=== PATIENT | female | born 1970 | race Caucasian/White ===

== ENCOUNTER 2016-07-11 18:15 | Inpatient (IN) | payer OTHER ==
[~2016-07-11] VITALS: Ht 167.6 cm; Wt 63.0 kg
--- NOTE | 2016-07-11 21:45 | NUR ---
MS/RN OPENING NOTES RECEIVED REPORT FROM HILARIA JEONG AT AROUND 1999. PT ARRIVED VIA PARAMEDICS FROM [place]. A/OX2-3, ON ROOM AIR, NO SOB OR DISTRESS NOTED. DENIES PAIN AT THIS TIME. IV TO RIGHT AC PATENT AND INTACT. العراقي IN PLACE DRAINING CLEAR YELLOW URINE. ORIENTED PT TO ROOM AND CALL LIGHT BED RAILS UPX3 AND ALARM ON. CALL LIGHT IN REACH. BED IN LOW/LOCKED POSITION. WILL CONTINUE TO MONITOR
[2016-07-11 22:00] VITALS: BP 95/47
[2016-07-11 22:05] VITALS: BP 95/47
--- NOTE | 2016-07-11 23:00 | NUR ---
MS/RN NOTES PT REQUESTING TO HAVE SOMETHING TO EAT AND DRINK. DR. JIMENES ON THE FLOOR. SAID OKAY TO EAT NOW BUT NPO AFTER MIDNIGHT. SANDWICH AND WATER/JUICE PROVIDED AND INFORMED PT OF NPO STATUS POST MIDNIGHT. PT VERBALIZED UNDERSTANDING
[2016-07-11] MEDS ORDERED: PANT40TA4 PO (23:29)
[2016-07-11] MEDS ORDERED: AZIT500T PO (23:29)
[2016-07-11] MEDS ORDERED: LACT10SO PO (23:29)
[2016-07-11] MEDS ORDERED: SULF1TAB47 PO (23:29)
[2016-07-11] MEDS ORDERED: ZOLPIDEM TARTRATE 5 MG TABLET PO PRN (23:30)
[2016-07-11] MEDS ORDERED: ONDANSETRON HCL/PF 4 MG/2 ML VIAL IVP PRN (23:30)
[2016-07-11] MEDS ORDERED: ACETAMINOPHEN 325 MG TABLET PO PRN (23:30)
[2016-07-11] MEDS ORDERED: Z GUARD REMEDY 2 OZ OINT TP PRN (23:30)
[2016-07-11] MEDS ORDERED: MORPHINE SULFATE INJ 2 MG/ML DISP.SYRIN IV PRN (23:30)
[2016-07-11] MEDS ORDERED: MAGNESIUM HYDROXIDE 30 ML UDC PO PRN (23:30)
[2016-07-11] MEDS: LACTULOSE 10 G/15 ML UDC (PYXIS) PO SCH (23:30)
[2016-07-11] MEDS ORDERED: LACTULOSE 10 G/15 ML UDC (PYXIS) ONE (23:57)
[2016-07-12] MEDS ORDERED: DEXTROSE 50%-WATER 50 ML DISP.SYRIN IV PRN
--- NOTE | 2016-07-12 | NUR ---
MS/RN NOTES ADMINISTERED SCHEDULED LACTULOSE 20G PO. FORGOT TO SAVE AFTER SCANNING.
--- NOTE | 2016-07-12 02:20 | NUR ---
MS/RN NOTES PT CURRENTLY ASLEEP. BREATHING EVEN AND UNLABORED. NO S/S OF DISTRESS NOTED. WARM BLANKETS PROVIDED. WILL CONTINUE TO MONITOR
[2016-07-12 06:32] LABS: BASOPHILS % (AUTO) 0.2 % (0.0-2.0); EOSINOPHILS # (AUTO) 0.1 /CMM (0.0-0.7); HEMATOCRIT 29 % (33-45); HEMOGLOBIN 9.4 g/dL (11.5-14.8); LYMPHOCYTES # (AUTO) 0.5 /CMM (0.8-4.8); LYMPHOCYTES % (AUTO) 9.7 % (20.0-44.0); MEAN CORPUSCULAR HEMOGLOBIN 29 PG (26.0-33.0); MEAN CORPUSCULAR HGB CONC 32 g/dl (31.0-36.0); MEAN CORPUSCULAR VOLUME 90 fL (82-100); MONOCYTES # (AUTO) 0.6 /CMM (0.1-1.30); MONOCYTES % (AUTO) 12.7 % (2.0-12.0); NEUTROPHILS # (AUTO) 3.9 /CMM (1.8-8.9); NEUTROPHILS % (AUTO) 75.4 % (43.0-81.0); PLATELET COUNT (AUTO) 127 /CMM (150-450); RDW COEFFICIENT OF VARIATION 19.4 (11.5-15.0); WHITE BLOOD COUNT (AUTO) 5.1 K/uL (4.3-11.0)
[2016-07-12] MEDS: BLOOD SUGAR DIAGNOSTIC 1 EACH STRIP IN SCH ×4 (06:35→21:40)
--- NOTE | 2016-07-12 06:36 | NUR ---
MS/RN NOTES BLOOD SUGAR=98 NO INSULIN COVERAGE PER SLIDING SCALE
--- NOTE | 2016-07-12 06:51 | NUR ---
MS/RN CLOSING NOTES PT ASLEEP, EASILY AROUSABLE TO NAME. A/OX2-3, ON ROOM AIR, NO SOB OR DISTRESS NOTED. BREATHING EVEN AND UNLABORED. NO COMPLAINTS OF PAIN AT THIS TIME. PT NPO STATUS FOR ABDOMINAL US TODAY. IV TO RAC PATENT AND INTACT. العراقي IN PLACE AND DRAINING WELL. PT AMBULATED WITH WALKER MULTIPLE TIMES THROUGHOUT THE NIGHT. HAD 2 EPISODES OF LOOSE YELLOW/BROWN STOOL POST LACTULOSE ADMINISTRATION. PT WANTS FLU VACCINE UPON DISCHARGE. MADE PT COMFORTABLE THROUGHOUT SHIFT. ALL NEEDS MET AND ATTENDED TO. BED IN LOW/LOCKED POSITION, BED ALARM ON. BED RAILS UPX3. Addendum: 07/12/16 at 0702 by ARIANNA MARIE RN PT REFUSED DVT PUMPS THROUGHOUT SHIFT. WILL ENDORSE RADHA TO AM SHIFT
[2016-07-12 07:11] LABS: ALBUMIN 2.3 g/dL (3.4-5.0); BILIRUBIN,TOTAL 0.6 mg/dL (0.2-1.0); CALCIUM, SERUM 8.1 mg/dL (8.5-10.1); PHOSPHORUS 2.6 mg/dL (2.5-4.9); POTASSIUM 3.1 mmol/L (3.5-5.1); TOTAL PROTEIN, SERUM 5.6 g/dL (6.4-8.2)
[2016-07-12 08:00] VITALS: BP 92/46
[2016-07-12 08:06] VITALS: BP 92/46
[2016-07-12] MEDS: SULFAMETH/TRIMETH 800/160 MG 1 UDTAB TABLET PO SCH ×2 (08:38→21:14)
[2016-07-12] MEDS: LACTULOSE 10 G/15 ML UDC (PYXIS) PO SCH ×3 (08:38→16:28)
[2016-07-12] MEDS: PANTOPRAZOLE 40 MG VIAL IV SCH (08:38)
[2016-07-12] MEDS ORDERED: ACET650S26 PO (08:53)
[2016-07-12] MEDS ORDERED: ALBU2.5V13 IH (08:53)
[2016-07-12] MEDS ORDERED: GUAI100S11 PO (08:53)
[2016-07-12] MEDS ORDERED: NAPH1POW3 PO (08:53)
[2016-07-12] MEDS ORDERED: RIFA150C3 PO (08:53)
[2016-07-12] MEDS ORDERED: HYDR-3326 PO (08:53)
[2016-07-12] MEDS ORDERED: PIPE2.259 IV (08:53)
[2016-07-12] MEDS ORDERED: ONDA4VIA30 IV (08:53)
[2016-07-12] MEDS ORDERED: PANT40VI IV (08:53)
[2016-07-12] MEDS ORDERED: IPRA3AMP IH (08:53)
--- NOTE | 2016-07-12 10:31 | NUR ---
MS RN NOTES S/B DR. SCHILLING WITH NEW ORDERS TO CANCEL ABDOMINAL ULTRASOUND, AND START HEPATIC DIET, AMMONIA LEVEL ALREADY DONE IN AM.
--- NOTE | 2016-07-12 10:38 | NUR ---
MS RN NOTES SPOKE WITH DIONNA TRAVIS AND SHE SAID TO ORDER 2 GMS NA AND 60 GMS PROTEIN FOR THE HEPATIC DIET.
[2016-07-12] MEDS ORDERED: POTASSIUM CHLORIDE 10 MEQ TABLET.SA PO ONE (11:30)
[2016-07-12] MEDS: INSULIN REGULAR, HUMAN 100 UNIT/ML 3 ML VIAL SQ PRN ×2 (11:43→17:19)
--- NOTE | 2016-07-12 13:03 | NUR ---
MS RN NOTES PATIENT REFUSED TO TAKE HER LACTULOSE, RISK AND BENEFITS DISCUSSED TO THE PATIENT THAT IT IS FOR THE TREATMENT OF HER HEPATIC ENCEPHALOPATHY BUT SHE STATED "I DON'T WANT TO TAKE IT! ". PATIENT IS AOX3, ABLE TO MAKE NEEDS KNOWN.
[2016-07-12 15:57] VITALS: BP 97/65
[2016-07-12 16:00] VITALS: BP 97/65
--- NOTE | 2016-07-12 17:19 | NUR ---
MS RN NOTES BLOOD SUGAR 110 NO INSULIN COVERAGE.
--- NOTE | 2016-07-12 19:00 | NUR ---
MS RN NOTES ENDORSED TO INCOMING SHIFT FOR CONTINUITY OF CARE. PATIENT REMAIN STABLE THE WHOLE SHIFT, NEEDS ALL ATTENDED.
--- NOTE | 2016-07-12 19:30 | NUR ---
RN NOTES: PT AWAKE, A/OX2-3, ON ROOM AIR, NO SOB OR DISTRESS NOTED. BREATHING EVEN AND UNLABORED. NO COMPLAINTS OF PAIN AT THIS TIME. IV TO RAC PATENT AND INTACT. العراقي IN PLACE AND DRAINING WELL. PT AMBULATING USING HER WALKER AROUND THE FLORES. SUGGEST TO HER TO REST IN HER ROOM, GIVEN WARM BLANKET. BED IN LOW AND LOCKED POSITION, BED ALARM ON. BED RAILS UPX2. CALL LIGHT WITH IN REACH.
[2016-07-12 20:00] VITALS: BP 108/72
--- NOTE | 2016-07-12 21:40 | NUR ---
RN NOTES: BLOOD SUGAR CHECK-120, INSULIN NOT GIVEN PER SCALE WILL CONTINUE TO MONITOR FOR SIGN OF HYPER/HYPOGLYCEMIA.CALL LIGHT WITHIN REACH.
[2016-07-12] MEDS: *INSULIN REGULAR(HUMULIN R)HUM 100 UNIT/ML VIAL SQ PRN (21:43)
--- NOTE | 2016-07-12 21:50 | NUR ---
RN NOTES: 2144 COMPLAINED OF GENERALIZED PAIN 12/21, BEFOREHAND SHE WAS WALKING AROUND USING HER WALKER,BP-103/66 IL-86 INSTRUCT TO STAY IN BED AFTER SHE RECEIVED HER PAIN MEDICATION BECAUSE IT WILL CAUSE DROWSINESS AND SHE WILL BE HIGH RISK FOR FALL IF SHE KEEP AMBULATING, SHE AGREED,PAIN MEDICATION GIVEN, CALL LIGHT WITH IN REACH, SIDERAILSX4 UP,BED LOW AND LOCKED.
--- NOTE | 2016-07-12 22:54 | NUR ---
RN NOTES: PATIENT GET UP AND CRYING SHE IS STILL IN PAIN SHE SAID SHE IS NOT RELIEVED AT ALL, PAIN IS 10/10 NOW,DR. JIMENES(SPOT REMOVER) NOTIFIED AT 2248PM AND INFORMED PATIENT IS HAVING SEVERE PAIN AND ON EEXTRA PRECAUTION IN TAKING NEPHROTOXIC MEDICATION, DR. Jimenes ORDERED TO GIVE EXTRA 1MG NOW AND DISCONTINUE PREVIOUS MORPHINE ORDER AND INCREASE TO 3MG, NOTED AND CARRIED OUT.
[2016-07-12] MEDS ORDERED: MORPHINE SULFATE INJ 2 MG/ML DISP.SYRIN ONE (22:56)
[2016-07-12] MEDS ORDERED: MORPHINE SULFATE INJ 2 MG/ML DISP.SYRIN IV ONE (23:00)
--- NOTE | 2016-07-12 23:02 | NUR ---
RN NOTES: BP CHECK-109/69 HI-94 PATIENT I CRYING AND VERY RESTLESS, SHE IS TELLING SHE IS IN PAIN, MORPHINE 1MG STAT GIVEN.PUT BACK IN BED. CALL LIGHT WITH IN REACH.
--- NOTE | 2016-07-12 23:40 | NUR ---
RN NOTES: PAIN WAS LESSENED 5/10,PATIENT WAS ABLE TO REST AND SLEEP,KEPT ON CLOSE VISUAL CHECK, CALL LIGHT WITH IN REACH.
--- NOTE | 2016-07-13 02:16 | NUR ---
RN NOTES: PATIENT IN DEEP SLEEP, NO CALLS MADE, KEPT ON CLOSE VISUAL CHECK, NO SIGN OF RESPIRATORY DISTRESS NOTED.
[2016-07-13] MEDS: BLOOD SUGAR DIAGNOSTIC 1 EACH STRIP IN SCH ×4 (06:53→22:21)
[2016-07-13] MEDS: INSULIN REGULAR, HUMAN 100 UNIT/ML 3 ML VIAL SQ PRN ×2 (06:54→12:04)
--- NOTE | 2016-07-13 06:54 | NUR ---
RN NOTES: SLEEP WELL AFTER HER PAIN MEDICATION DOSE,BLOOD SUGAR CHECK-97, NO INSULIN GIVEN PER SCALE, WILL ENDORSE TO MORNING SHIFT FOR CONTINUITY OF CARE.
[2016-07-13 07:14] LABS: ALBUMIN 2.1 g/dL (3.4-5.0); BASOPHILS % (AUTO) 0.6 % (0.0-2.0); BILIRUBIN,TOTAL 0.5 mg/dL (0.2-1.0); CALCIUM, SERUM 8.2 mg/dL (8.5-10.1); CREATININE 1.9 mg/dL (0.6-1.3); EOSINOPHILS # (AUTO) 0.1 /CMM (0.0-0.7); EOSINOPHILS % (AUTO) 1.2 % (0.0-6.0); HEMATOCRIT 26 % (33-45); HEMOGLOBIN 8.5 g/dL (11.5-14.8); LYMPHOCYTES # (AUTO) 0.5 /CMM (0.8-4.8); LYMPHOCYTES % (AUTO) 11.5 % (20.0-44.0); MAGNESIUM 1.7 mg/dL (1.8-2.4); MEAN CORPUSCULAR HEMOGLOBIN 29 PG (26.0-33.0); MEAN CORPUSCULAR HGB CONC 33 g/dl (31.0-36.0); MEAN CORPUSCULAR VOLUME 89 fL (82-100); MONOCYTES # (AUTO) 0.5 /CMM (0.1-1.30); MONOCYTES % (AUTO) 12.1 % (2.0-12.0); NEUTROPHILS # (AUTO) 3.3 /CMM (1.8-8.9); NEUTROPHILS % (AUTO) 74.6 % (43.0-81.0); PHOSPHORUS 2.5 mg/dL (2.5-4.9); PLATELET COUNT (AUTO) 131 /CMM (150-450); POTASSIUM 3.6 mmol/L (3.5-5.1); RED BLOOD CELL COUNT(AUTO) 2.92 MIL/uL (4.0-5.2); TOTAL PROTEIN, SERUM 5.3 g/dL (6.4-8.2); WHITE BLOOD COUNT (AUTO) 4.4 K/uL (4.3-11.0)
--- NOTE | 2016-07-13 07:20 | NUR ---
RN OPEN NOTES RECEIVED REPORT FROM CINDER PITMAN NURSE. PATIENT IS IN HER BED WITH HER EYE CLOSED, AWAKEN TO CALLING HER NAME. NO SIGN AND SYMPTOMS OF DISTRESS. IV SITE IS POTENT AND INTACT. BED IS IN LOW POSITION, LOCKED AND TWO SIDE RAILS ARE UP. PER CINDER PITMAN NURSE, HIGH AMMONIA LEVEL OD 323 WAS REPORTED FROM LAB. I WILL FOLLOW UP WITH THE LAB TO CONFIRM AMMONIA LEVEL AND WILL NOTIFY MD. WILL CONTINUE TO ASSESS AND MONITOR PATIENT CONDITION THROUGH OUT MY SHIFT. Addendum: 07/13/16 at [address] RN [id number]: CALLED LAB TO CONFIRMED RESULTS. [id number]: PAGES DR HARRELL THROUGH [employer] [id number]: LAB CALLED TO CONFIRM CORRECT AMMONIA RESULT OF 224. WILL NOTIFY MD WHEN HE CALLS BACK
--- NOTE | 2016-07-13 07:30 | NUR ---
RN NOTES: RECEIVED CALL FROM LAB AT 0700 AMMONIA WAS 323,ENDORSED TO NEXT SHIFT FOR CONTINUITY OF CARE AND TO RELAY RESULT TO PRIMARY DOCTOR.PATIENT IS AWAKE AND COHERENT, LYING COMFORTABLY IN BED. Addendum: 07/13/16 at 0825 by OLIVIA VALENCIA RN BLOOD TEST RESULT CORRECTION: AMMONIA RESULT IS 224 NOT 323
[2016-07-13 08:00] VITALS: BP 111/81
[2016-07-13] MEDS: SULFAMETH/TRIMETH 800/160 MG 1 UDTAB TABLET PO SCH ×2 (08:09→21:14)
[2016-07-13] MEDS: PANTOPRAZOLE 40 MG VIAL IV SCH (08:09)
[2016-07-13] MEDS: LACTULOSE 10 G/15 ML UDC (PYXIS) PO SCH ×4 (08:09→21:14)
[2016-07-13] MEDS: MORPHINE SULFATE INJ 2 MG/ML DISP.SYRIN IV PRN ×3 (08:10→21:15)
--- NOTE | 2016-07-13 10:00 | NUR ---
RN NOTES AMMONIA LEVEL MD NOTIFIES AND NEW ORDER RECEIVED AND CARRY ON. PLEASE SEE eMAR FOR DETAILS
[2016-07-13] MEDS ORDERED: Magnesium 1GM/D5W 100ML PREMIX 100 ML IV SCH (11:00)
[2016-07-13] MEDS ORDERED: SECONDARY IV SET 1 EA INFUS.SET MC ONE (11:01)
[2016-07-13] MEDS ORDERED: IV NS 0.9% 250 ML IV ONE (11:04)
[2016-07-13] MEDS ORDERED: IV SET PRIMARY PUMP SET 1 EA INFUS.SET MC ONE (11:04)
[2016-07-13 16:00] VITALS: BP 108/60
--- NOTE | 2016-07-13 17:18 | NUR ---
RN NOTES PATIENT'S PAIN LEVEL 9/10. MORPHINE 3MG ADMINISTERED. BLOOD PRESSURE 118/81
--- NOTE | 2016-07-13 19:02 | NUR ---
RN CLOSING NOTES PATIENT IS IN BED. ALERT AND ORIENTED TO NAME. NO SIGN AND SYMPTOMS OF DISTRESS. BED IS IN LOW POSITION, LOCKED AND 2 SIDE RAILS ARE UP. IV SITE IS INTACT AND POTENT. VITAL SIGNS ARE WITHIN NORMAL RANGE. PLEASE SEE PREVIOUS NOTES REGRADING HER AMMONIA LEVEL. WILL ENDORSE TO GREEN BUILDING MATERIALS DISTRIBUTOR NURSE.
--- NOTE | 2016-07-13 19:05 | NUR ---
RN NOTE RECEIVED REPORT. PT AWAKE, APPEARS COMFORTABLE IN BED, KAZAKH SPEAKING. NO S/S OF PAIN OR DISCOMFORT, NO S/S OF RESPIRATORY DISTRESS. L AC INTACT AND PATENT S/L. ABDOMEN DISTENDED. CALL LIGHT IN REACH, WILL CONT TO MONITOR. Addendum: 07/13/16 at 1947 by TEOFILO ROJAS RN F/C INTACT AND DRAINING.
[2016-07-13 20:03] VITALS: BP 107/73
--- NOTE | 2016-07-13 22:20 | NUR ---
RN NOTE PINK FLUID NOTED IN F/C BAG, WILL CLOSELY OBSERVE. SPRING TESTER NOTIFIED.
--- NOTE | 2016-07-14 04:01 | NUR ---
RN NOTE PT CRYING, MAKING FACIAL GRIMACES, POINTING TO HER ABDOMEN SAYING "PAIN" 12/21. WILL GIVE PRN MORPHINE PER MD ORDER. WILL MONITOR FOR EFFECTIVENESS.
[2016-07-14] MEDS: MORPHINE SULFATE INJ 2 MG/ML DISP.SYRIN IV PRN ×3 (04:08→17:15)
--- NOTE | 2016-07-14 06:20 | NUR ---
RN NOTE NO SIGNIFICANT CHANGES THIS SHIFT. PRN MEDICATION PROVIDED T/O SHIFT THAT WAS EFFECTIVE. NO S/S OF PAIN OR DISCOMFORT AT THIS TIME. NO S/S OF RESPIRATORY DISTRESS. R FA INTACT AND PATENT, NO FLUIDS. ON ROOM AIR. ABDOMEN NOTED TO BE DISTENDED. ALL NEEDS ATTENDED TO, CALL LIGHT IN REACH. WILL F/U WITH DAY SHIFT FOR RADHA. Addendum: 07/14/16 at 0634 by TEOFILO ROJAS RN F/C INTACT AND DRAINING, YELLOW PINKISH URINE NOTED IN COLLECTION BAG.
--- NOTE | 2016-07-14 06:45 | NUR ---
RN NOTE PT RIPPED OUT IV, TRIED TO REINSERT X2 WITH NURSE ENRIQUE. HAS THIN VEINS. CHARGE NURSE NOTIFIED. WILL F/U WITH DAY SHIFT FOR CONTINUITY OF CARE.
[2016-07-14 07:15] LABS: BASOPHILS % (AUTO) 0.7 % (0.0-2.0); EOSINOPHILS # (AUTO) 0.1 /CMM (0.0-0.7); EOSINOPHILS % (AUTO) 1.6 % (0.0-6.0); HEMATOCRIT 27 % (33-45); HEMOGLOBIN 8.9 g/dL (11.5-14.8); LYMPHOCYTES # (AUTO) 0.7 /CMM (0.8-4.8); LYMPHOCYTES % (AUTO) 12.5 % (20.0-44.0); MEAN CORPUSCULAR HEMOGLOBIN 30 PG (26.0-33.0); MEAN CORPUSCULAR HGB CONC 33 g/dl (31.0-36.0); MEAN CORPUSCULAR VOLUME 90 fL (82-100); MONOCYTES # (AUTO) 0.7 /CMM (0.1-1.30); MONOCYTES % (AUTO) 13.7 % (2.0-12.0); NEUTROPHILS # (AUTO) 3.8 /CMM (1.8-8.9); NEUTROPHILS % (AUTO) 71.5 % (43.0-81.0); PLATELET COUNT (AUTO) 166 /CMM (150-450); RDW COEFFICIENT OF VARIATION 19.2 (11.5-15.0); RED BLOOD CELL COUNT(AUTO) 3.03 MIL/uL (4.0-5.2); WHITE BLOOD COUNT (AUTO) 5.3 K/uL (4.3-11.0)
[2016-07-14 07:26] LABS: ALBUMIN 2.4 g/dL (3.4-5.0); BILIRUBIN,TOTAL 0.7 mg/dL (0.2-1.0); CALCIUM, SERUM 8.4 mg/dL (8.5-10.1); CREATININE 2.1 mg/dL (0.6-1.3); TOTAL PROTEIN, SERUM 5.7 g/dL (6.4-8.2)
[2016-07-14] MEDS: BLOOD SUGAR DIAGNOSTIC 1 EACH STRIP IN SCH ×4 (07:31→22:38)
--- NOTE | 2016-07-14 07:55 | NUR ---
MS RN RECEIVED ON BED, AWAKE,ALERT,ORIENTED X2,NOT IN ANY FORM OF DISTRESS, RESPIRATIONS EVEN AND UNLABORED,NO SOB NOTED, NOTED TO HAVE A DISTENDED, FIRM ABDOMEN, DENIES PAIN AT THIS TIME, WILL MONITOR PATIENT'S CONDITION.
[2016-07-14 08:00] VITALS: BP 110/68
--- NOTE | 2016-07-14 09:00 | NUR ---
MS REYES BREAKFAST SERVED,DUE MEDS GIVEN,TOLERATED WELL.
[2016-07-14] MEDS: SULFAMETH/TRIMETH 800/160 MG 1 UDTAB TABLET PO SCH ×2 (09:48→20:48)
[2016-07-14] MEDS: LACTULOSE 10 G/15 ML UDC (PYXIS) PO SCH ×4 (09:48→20:49)
[2016-07-14] MEDS: PANTOPRAZOLE 40 MG VIAL IV SCH (09:48)
--- NOTE | 2016-07-14 11:00 | NUR ---
MS RN WAS SEEN BY ABBEY MONCADA/ DEZ FOR PARACENTHESIS.
[2016-07-14 11:12] LABS: INR 1.17 (0.87-1.13); PROTHROMBIN TIME 12.7 SECS (9.5-12.7)
--- NOTE | 2016-07-14 12:00 | NUR ---
MS RN BS - 131- PATIENT REFUSED TO GIVE COVERAGE, NOT EATING MUCH.
--- NOTE | 2016-07-14 12:30 | NUR ---
MS RN WAS SEEN BY DR. BEV Leyva/ ORDERS MADE AND CARRIED OUT.
[2016-07-14 12:31] LABS: IRON, SERUM 24 ug/dl (50-175); TOTAL IRON BINDING CAPACITY 288 ug/dl (250-450)
[2016-07-14 12:34] LABS: FERRITIN 131 ng/mL (8-388)
--- NOTE | 2016-07-14 14:00 | NUR ---
MS RN PARACENTHESIS DONE W/ 6 LITERS OUTPUT.
--- NOTE | 2016-07-14 15:44 | NUR ---
Social service consult requested by case investigator Yesi for homelessness. Per H&P report by Dr. Evangelista, pt. is a 45 year old female with PMHx of end stage liver disease, liver cirrhosis, HIV infection, Hepatitis C infection, CKD, DM II, History of ETOH abuse, chronic anemia, is a [place] transfer for abdominal and altered mental status. Per medical report, patient is homeless and was brought in by EMS for altered mental status. Patient also told EMS she had abdominal pain. NO fevers or chills. Patient was recently admitted at [facility] for hepatic encephalopathy. SHIKHA met with pt. bedside along with [facility] air conditioning unit tester Jami to assist in Italian translation. Pt. is A&O x1. Pt. was able to state she is in the hospital but could not provide the name. Pt. appeared disheveled and very confused. Pt. started to cry when asked questions such as where does she live or if she has any income. Pt. is unable to provide any pertinent history. SW was unable to assess pt. due to her altered mental status. SHIKHA requested [facility] JAYLENE Hernandez to order a psych. consult for pt.
[2016-07-14 16:00] VITALS: BP 90/39
--- NOTE | 2016-07-14 17:30 | NUR ---
MS REYES BS - 101 - NO COVERAGE GIVEN.
--- NOTE | 2016-07-14 18:34 | NUR ---
MS RN ON BED,NO DISTRESS NOTED,ALL NEEDS ATTENDED.SENT URINE TO LABS.
[2016-07-14 20:00] VITALS: BP 100/62
--- NOTE | 2016-07-14 20:00 | NUR ---
MS SERGING MACHINE OPERATOR AUTOMATIC INITIAL NOTES SEEN PT IN BED RESTING BUT WATCHING TV , CRYING ONCE IN A WHILE .RESPIRATION EVEN AND UNLABORED, SKIN WARM AND DRY TO TOUCH WITH ABDOMEN DISTENDED . العراقي TO GRAVITY WITH ROSIE IN COLORED URINE. KEPT HER WARM AND COMFORTABLE AT ALL TIMES. WILL CONTINUE TO MONITOR. PLACE CALL LIGHT AT REACH.
[2016-07-14] MEDS: QUETIAPINE FUMARATE 25 MG TABLET PO SCH (20:48)
[2016-07-14 20:49] LABS: CREATININE, URINE 120.4 MG/DL (30.0-125.0); URINE TOTAL PROTEIN 129.7 mg/dL (0-11.9)
[2016-07-14 21:11] LABS: APPEARANCE,URINE SL CLOUDY (CLEAR); BILIRUBIN,URINE NEGATIVE (NEGATIVE); BLOOD, URINE 3+ Ery/uL (NEGATIVE); COLOR,URINE YELLOW (YELLOW); KETONES,URINE NEGATIVE (NEGATIVE); LEUKOCYTE ESTERASE ,URINE NEGATIVE (NEGATIVE); NITRITE, URINE NEGATIVE (NEGATIVE); PROTEIN,URINE 2+ mg/dl (NEGATIVE); UGLUCOSE NEGATIVE (NEGATIVE); UROBILINOGEN,URINE 0.2 EU/dL (0.2)
[2016-07-14 21:26] LABS: ADD URINE CULTURE YES; BACTERIA,URINE Few /HPF (None Seen); RBC,URINE 51-80 /HPF (0-2); SQUAMOUS EPITHELIAL CELL,UR Few /HPF (None Seen)
[2016-07-14 21:59] LABS: EOSINOPHIL,URINE None Seen
[2016-07-14] MEDS: *INSULIN REGULAR(HUMULIN R)HUM 100 UNIT/ML VIAL SQ PRN (22:39)
--- NOTE | 2016-07-14 22:40 | NUR ---
BURLAPPER/NOTES BLOOD SUGAR 114, NO INSULIN GIVEN AT THIS TIME. NO SIGNS OF HYPO GLYCEMIA NOTED. WILL CONTINUE TO MONITOR.
[2016-07-14] MEDS: MAG HYDROX/AL HYDROX/SIMETH 30 ML UDC PO PRN (22:42)
--- NOTE | 2016-07-15 | NUR ---
MANAGER SPEECH/NOTES PT SLEEPING COMFORTABLY IN BED WITHOUT ANY ACUTE DISTRESS NOTED, BREATHING EVEN AND NON-LABORED. WILL CONTINUE TO MONITOR.
[2016-07-15] MEDS: BLOOD SUGAR DIAGNOSTIC 1 EACH STRIP IN SCH ×4 (05:52→22:40)
[2016-07-15 06:44] LABS: EOSINOPHILS # (AUTO) 0.1 /CMM (0.0-0.7); EOSINOPHILS % (AUTO) 1.8 % (0.0-6.0); HEMATOCRIT 28 % (33-45); HEMOGLOBIN 9.1 g/dL (11.5-14.8); LYMPHOCYTES # (AUTO) 0.6 /CMM (0.8-4.8); LYMPHOCYTES % (AUTO) 13.5 % (20.0-44.0); MEAN CORPUSCULAR HEMOGLOBIN 30 PG (26.0-33.0); MEAN CORPUSCULAR HGB CONC 33 g/dl (31.0-36.0); MEAN CORPUSCULAR VOLUME 90 fL (82-100); MONOCYTES # (AUTO) 0.5 /CMM (0.1-1.30); MONOCYTES % (AUTO) 11.6 % (2.0-12.0); NEUTROPHILS % (AUTO) 72.1 % (43.0-81.0); PLATELET COUNT (AUTO) 122 /CMM (150-450); RDW COEFFICIENT OF VARIATION 19.6 (11.5-15.0); RED BLOOD CELL COUNT(AUTO) 3.06 MIL/uL (4.0-5.2); WHITE BLOOD COUNT (AUTO) 4.1 K/uL (4.3-11.0)
[2016-07-15 07:12] LABS: ALBUMIN 2.3 g/dL (3.4-5.0); BILIRUBIN,TOTAL 0.6 mg/dL (0.2-1.0); CALCIUM, SERUM 8.4 mg/dL (8.5-10.1); CREATININE 2.1 mg/dL (0.6-1.3); PHOSPHORUS 3.2 mg/dL (2.5-4.9); POTASSIUM 4.1 mmol/L (3.5-5.1); TOTAL PROTEIN, SERUM 5.6 g/dL (6.4-8.2)
--- NOTE | 2016-07-15 07:34 | NUR ---
REINFORCING IRON WORKER HELPER CLOSING NOTES PT BACK TO SLEEP AFTER MORNING CARE DONE, BLOOD SUGAR 92 NO INSULIN COVERAGES GIVEN ORDERED. NO SIGNS OF HYPO GLYCEMIA NOTED. STILL ABDOMEN DISTENDED BECAUSE OF HER HEPATIC ENCEPHALOPATHY, العراقي TO GRAVITY AND HAVE 2 X BOWEL MOVEMENT YELLOWISH IN COLOR LIQUID BUT WITH SOME PARTICLES. REFUSED TO HAVE DVT PUMP. STABLE GENARO THE NIGHT AND SLEPT WELL AFTER SEROQUEL GIVEN . KEPT HER COMFORTABLE AT ALL TIMES. WILL ENDORSE TO AM NURSE MILLER FOR CONTINUITY OF CARE.
[2016-07-15 08:00] VITALS: BP 105/67
--- NOTE | 2016-07-15 08:00 | NUR ---
MS RN NOTE PT. IS SLEEPING. VS STABLE. SIDE RAILS UP. BED ALARM ON. CALL LIGHT WITHIN REACH. MONITOR CLOSELY.
[2016-07-15] MEDS: PANTOPRAZOLE 40 MG VIAL IV SCH (08:05)
[2016-07-15] MEDS: LACTULOSE 10 G/15 ML UDC (PYXIS) PO SCH ×4 (08:06→22:40)
[2016-07-15] MEDS: SULFAMETH/TRIMETH 800/160 MG 1 UDTAB TABLET PO SCH ×2 (08:19→22:40)
[2016-07-15 09:05] LABS: CREATINE KINASE MB 13.2 ng/mL (0-3.6)
--- NOTE | 2016-07-15 10:34 | NUR ---
SHIKHA received a call from Kelly Villa from [place] [facility]. Kelly informed SHIKHA she has been working with pt. since 2014. Pt. currently resides at a [facility] located at [address] [place] [address] . Kelly is requesting for pt. to be discharged to a detention facility and stated, her program might be able to fund for the facility. SHIKHA informed Kelly she will follow up with case operator Yesi and have her contact her regarding placement at a SNF.
[2016-07-15] MEDS: INSULIN REGULAR, HUMAN 100 UNIT/ML 3 ML VIAL SQ PRN (12:18)
[2016-07-15] MEDS: MORPHINE SULFATE INJ 2 MG/ML DISP.SYRIN IV PRN (13:09)
[2016-07-15 16:00] VITALS: BP 105/57
[2016-07-15] MEDS: QUETIAPINE FUMARATE 25 MG TABLET PO SCH (17:20)
--- NOTE | 2016-07-15 19:40 | NUR ---
RN OPENING NOTES RECEIVED REPORT FROM DAYSHIFT RN PAUL. FOUND Pt AWAKE IN BED. NO S/S OF ACUTE DISTRESS OR SOB NOTED. Pt C/O GENERALIZED PAIN. WILL ADMINISTER PRN PAIN MED WHEN DUE. Pt IS A/OX2, HOMELESS, MAINLY MARSHALLESE SPEAKING, LITTLE BIT OF OCCITAN. العراقي CATHETER IN PLACE. IV ACCESS L HAND #22G, SL. SAFETY MEASURES IN PLACE. BED LOW, LOCKED, HOB ELEVATED, SIDE RAILS UP, CALL LIGHT AND BEDSIDE TABLE WITHIN REACH. WILL CONTINUE TO MONITOR Pt THROUGHOUT THE NIGHT FOR SAFETY.
[2016-07-15 20:00] VITALS: BP 102/55
--- NOTE | 2016-07-15 22:30 | NUR ---
RN NOTES PM ACCUCHECK 140. ADMINISTERED 2UN OF INSULIN PER SLIDING SCALE
[2016-07-15] MEDS: *INSULIN REGULAR(HUMULIN R)HUM 100 UNIT/ML VIAL SQ PRN (23:01)
[2016-07-16] MEDS: MORPHINE SULFATE INJ 2 MG/ML DISP.SYRIN IV PRN ×3 (05:20→14:45)
--- NOTE | 2016-07-16 06:35 | NUR ---
RN NOTES AM ACCUCHECK. BG 123. NO INSULIN COVERAGE NEEDED AT THIS TIME.
--- NOTE | 2016-07-16 06:51 | NUR ---
RN CLOSING NOTES NO SIGNIFICANT CHANGES DURING THE SHIFT. ALL NEEDS MET AND ATTENDED TO. NO S/S OF ACUTE DISTRESS OR SOB NOTED DURING THE NIGHT. ALL SAFETY MEASURES CARRIED OUT. WILL ENDORSE TO DAYSHIFT RN FOR Pt's RADHA
--- NOTE | 2016-07-16 07:10 | NUR ---
MS RN INITIAL NOTES REPORT RECEIVED AT THE BEDSIDE. PATIENT IS RESTING COMFORTABLY IN BED. NO SOB OR DISTRESS NOTED AT THIS TIME. PATIENT DENIES PAIN. BED IN A LOW POSITION, CALL LIGHT WITHIN PATIENT REACH. WILL CONTINUE TO MONITOR.
[2016-07-16] MEDS: LACTULOSE 10 G/15 ML UDC (PYXIS) PO SCH ×4 (08:49→22:09)
[2016-07-16] MEDS: PANTOPRAZOLE 40 MG VIAL IV SCH ×2 (08:49→22:08)
[2016-07-16] MEDS: SULFAMETH/TRIMETH 800/160 MG 1 UDTAB TABLET PO SCH ×2 (08:49→22:09)
[2016-07-16] MEDS: BLOOD SUGAR DIAGNOSTIC 1 EACH STRIP IN SCH ×4 (08:49→22:10)
[2016-07-16 09:00] VITALS: BP 103/64
[2016-07-16 09:22] LABS: BASOPHILS % (AUTO) 0.4 % (0.0-2.0); EOSINOPHILS # (AUTO) 0.1 /CMM (0.0-0.7); HEMATOCRIT 28 % (33-45); HEMOGLOBIN 9.2 g/dL (11.5-14.8); LYMPHOCYTES # (AUTO) 0.6 /CMM (0.8-4.8); LYMPHOCYTES % (AUTO) 10.5 % (20.0-44.0); MEAN CORPUSCULAR HEMOGLOBIN 30 PG (26.0-33.0); MEAN CORPUSCULAR HGB CONC 33 g/dl (31.0-36.0); MEAN CORPUSCULAR VOLUME 90 fL (82-100); MONOCYTES # (AUTO) 0.6 /CMM (0.1-1.30); MONOCYTES % (AUTO) 10.2 % (2.0-12.0); NEUTROPHILS # (AUTO) 4.3 /CMM (1.8-8.9); NEUTROPHILS % (AUTO) 77.9 % (43.0-81.0); PLATELET COUNT (AUTO) 142 /CMM (150-450); RDW COEFFICIENT OF VARIATION 19.7 (11.5-15.0); RED BLOOD CELL COUNT(AUTO) 3.14 MIL/uL (4.0-5.2); WHITE BLOOD COUNT (AUTO) 5.5 K/uL (4.3-11.0)
[2016-07-16 09:33] LABS: POTASSIUM 3.8 mmol/L (3.5-5.1)
--- NOTE | 2016-07-16 11:06 | NUR ---
MS RN NOTES REMINDED PATIENT OF FREQUENT TURNING PATIENT IS INDEPENDENT OF MOBILITY. PATIENT IS REFUSING TO TURN AT THIS TIME. EXPLAINED TO THE PATIENT THE IMPORTANCE OF FREQUENT TURNING, BUT PATIENT STILL REFUSES. WILL ATTEMPT AGAIN LATER.
[2016-07-16] MEDS: INSULIN REGULAR, HUMAN 100 UNIT/ML 3 ML VIAL SQ PRN ×2 (11:43→17:01)
[2016-07-16] MEDS: QUETIAPINE FUMARATE 25 MG TABLET PO PRN (12:00)
--- NOTE | 2016-07-16 12:04 | NUR ---
MS RN NOTES DR WILSON ASKED TO ADMIN PRN SEROQUEL PATIENT IS WITHDRAWN AND SOBBING TO HERSELF. PATIENT IS STILL REFUSING TO TURN AND REFUSES TO TAKE LACTULOSE.
[2016-07-16 13:22] LABS: PTH, INTACT 29 pg/mL (15-65)
--- NOTE | 2016-07-16 14:19 | NUR ---
MS RN NOTES PATIENT IS STILL REFUSING TO TURN. AGAIN EXPLAINED IMPORTANCE, BUT PATIENT STILL REFUSES. WILL ATTEMPT AGAIN LATER.
[2016-07-16] MEDS ORDERED: GUAIFENESIN 300 MG/15 ML UDC PO PRN ×2 (14:30→18:30)
[2016-07-16] MEDS ORDERED: ONDANSETRON HCL/PF 4 MG/2 ML VIAL IV PRN (14:30)
[2016-07-16] MEDS ORDERED: Medication Not On Formulary EA (Ipratropium/Albuterol Sulfate (Duoneb 2.5-0.5 Mg/3 Ml So IH PRN (14:30)
[2016-07-16] MEDS ORDERED: ACETAMINOPHEN 650 MG/20.3 ML UDC PO PRN (14:30)
[2016-07-16] MEDS ORDERED: ALBUTEROL FS 2.5 MG/3 ML VIAL.NEB NEB PRN (15:00)
[2016-07-16] MEDS ORDERED: IPRATROPIUM NEB FS 0.5 MG/2.5 ML AMPUL.NEB NEB PRN (15:00)
[2016-07-16] MEDS: MAG HYDROX/AL HYDROX/SIMETH 30 ML UDC PO PRN (15:14)
[2016-07-16 16:00] VITALS: BP 109/66
[2016-07-16] MEDS: NEUTRA PHOS 1 POWD.PACKET PO SCH (17:01)
[2016-07-16] MEDS: QUETIAPINE FUMARATE 25 MG TABLET PO SCH (17:01)
--- NOTE | 2016-07-16 18:49 | NUR ---
MS RN NOTES CALLED PHARMACY FOR RAFAMPIN DOSE. WAITING FOR PHARMACY TO PROVIDE SINCE IT IS NOT IN THE [facility]IX[facility].
--- NOTE | 2016-07-16 19:16 | NUR ---
MS RN CLOSING NOTES NO SIGNIFICANT CHANGES IN PATIENT CONDITION THROUGHOUT THE SHIFT. NO SOB OR DISTRESS NOTED AT THIS TIME. PATIENT DENIES PAIN. BED IN A LOW POSITION, CALL LIGHT WITHIN PATIENT REACH. WILL ENDORSE FOR RADHA.
--- NOTE | 2016-07-16 19:42 | NUR ---
RN OPENING NOTES RECEIVED REPORT FROM [facility]. FOUND Pt AWAKE IN BED. NO S/S OF ACUTE DISTRESS OR SOB NOTED. Pt HAD DINNER TRAY IN FRONT OF HER, BUT WAS NOT EATING. Pt IS A/OX2, HOMELESS, MAINLY ROMANIAN SPEAKING, LITTLE BIT OF CUB[place]. العراقي CATHETER IN PLACE. IV ACCESS L HAND #22G, SL. SAFETY MEASURES IN PLACE. BED LOW, LOCKED, HOB ELEVATED, SIDE RAILS UP, CALL LIGHT AND BEDSIDE TABLE WITHIN REACH. WILL CONTINUE TO MONITOR Pt THROUGHOUT THE NIGHT FOR SAFETY.
[2016-07-16 20:00] VITALS: BP 108/55
[2016-07-16] MEDS ORDERED: RIFAMPIN 150 MG CAPSULE PO SCH (21:00)
[2016-07-16] MEDS: RIFAMPIN 150 MG CAPSULE PO SCH (22:09)
--- NOTE | 2016-07-16 22:25 | NUR ---
PM ACCUCHECK BG 122. NO INSULIN COVERAGE NEEDED AT THIS TIME. WILL CONTINUE TO MONITOR Pt's BG LEVELS.
[2016-07-17] MEDS: QUETIAPINE FUMARATE 25 MG TABLET PO PRN (01:26)
[2016-07-17] MEDS: MORPHINE SULFATE INJ 2 MG/ML DISP.SYRIN IV PRN ×3 (03:29→20:07)
--- NOTE | 2016-07-17 05:55 | NUR ---
AM ACCUCHECK. BG 94. NO INSULIN COVERAGE NEEDED AT THIS TIME.
[2016-07-17] MEDS: BLOOD SUGAR DIAGNOSTIC 1 EACH STRIP IN SCH ×4 (05:56→22:05)
[2016-07-17 06:56] LABS: CALCIUM, SERUM 8.2 mg/dL (8.5-10.1); POTASSIUM 4.2 mmol/L (3.5-5.1)
--- NOTE | 2016-07-17 07:37 | NUR ---
MS RN OPENING NOTE PATIENT IS AWAKE ALERT AND ORIENTED x2. COLOMBIAN SPEAKING, UNDERSTANDS SOME [place]. NO PAIN AT THIS TIME PER PATIENT. NO SOB OR DISTRESS NOTED. NOTICED PATIENT CRYING, ASKED PATIENT IF I COULD HELP WITH ANYTHING, PATIENT STATED IT WAS TOO LOUD. COMFORTED PATIENT AND LISTENED TO HER NEEDS. SAFETY MEASURES IMPLEMENTED. CALL LIGHT WITHIN REACH. BED LOCKED IN LOWEST POSITION WITH SIDERAILS UP x2. العراقي CATHETER IN PLACE AND INTACT. RENAL DIET. ON MONITORING FOR NEURO STATUS. WILL CONTINUE TO MONITOR
[2016-07-17] MEDS: PANTOPRAZOLE 40 MG VIAL IV SCH ×2 (08:00→21:18)
[2016-07-17] MEDS: RIFAMPIN 150 MG CAPSULE PO SCH ×2 (08:00→17:50)
[2016-07-17] MEDS: SULFAMETH/TRIMETH 800/160 MG 1 UDTAB TABLET PO SCH ×2 (08:00→21:18)
[2016-07-17] MEDS: NEUTRA PHOS 1 POWD.PACKET PO SCH ×2 (08:00→17:50)
[2016-07-17] MEDS: LACTULOSE 10 G/15 ML UDC (PYXIS) PO SCH ×4 (08:03→21:18)
[2016-07-17] MEDS: AZITHROMYCIN 250 MG TABLET PO SCH (08:09)
[2016-07-17 08:12] VITALS: BP 107/58
[2016-07-17 11:32] LABS: *SPE ALBUMIN 2.7 g/dL (2.9-4.4); *SPE ALPHA-1-GLOBULIN 0.3 g/dL (0.0-0.4); *SPE ALPHA-2-GLOBULIN 0.4 g/dL (0.4-1.0); *SPE BETA GLOBULIN 0.9 g/dL (0.7-1.3); *SPE GLOBULIN, TOTAL 2.7 g/dL (2.2-3.9); *SPE M-SPIKE Not Observed g/dL (Not Observed); *SPE PROTEIN TOTAL 5.4 g/dL (6.0-8.5); *SPEGAMMA GLOBULIN 1.2 g/dL (0.4-1.8)
--- NOTE | 2016-07-17 11:54 | NUR ---
MS RN NOTE PATIENT TAKEN TO RADIOLOGY FOR ULTRASOUND GUIDED PARACENTESIS. CONSENT OBTAINED. PATIENT IS STABLE.
--- NOTE | 2016-07-17 12:00 | NUR ---
MS RN NOTE CHECKED PATIENTS BLOOD SUGAR. AT 103 NO INSULIN COVERAGE NEEDED.
--- NOTE | 2016-07-17 13:10 | NUR ---
MS RN NOTE PATIENT CAME BACK FROM ULTRASOUND GUIDED PARACENTESIS, 5500ML TAKEN OUT. VITAL SIGNS STABLE. NO PAIN AT THIS TIME. WILL CONTINUE TO MONITOR PATIENT
[2016-07-17 16:00] VITALS: BP 109/51
[2016-07-17] MEDS: QUETIAPINE FUMARATE 25 MG TABLET PO SCH (17:50)
--- NOTE | 2016-07-17 18:00 | NUR ---
MS RN NOTE CHECKED PATIENTS BLOOD SUGAR, 128. NO INSULIN COVERAGE NEEDED. WILL ENDORSE TO BRUSH HOLDER ASSEMBLER NURSE
--- NOTE | 2016-07-17 18:31 | NUR ---
MS RN CLOSING NOTE PATIENT IS AWAKE ALERT AND ORIENTED x2. SLOVENIAN SPEAKING. ALL DUE MEDICATION GIVEN ORDERED. NO PAIN AT THIS TIME. NO SOB OR DISTRESS NOTED. CALL LIGHT WITHIN REACH AT ALL TIMES. SAFETY MEASURES IMPLEMENTED. IV INTACT AND PATENT NO REDNESS OR SWELLING NOTED. ABDOMINAL ASCITES PRESENT, HAD U/S GUIDED PARACENTESIS DONE EARLIER TODAY REMOVING 5500 ML OF FLUID. 60 ML OF FLUID SENT TO LAB AND GIVEN TO ELENA. PATIENT HAD MULTIPLE EPISODES OF ANGER AND CRYING, WHEN ASKED HOW I COULD HELP PATIENT STATED SHE WANTED SOMETHING TO EAT OR JUST WANTED TO TALK TO SOMEONE. COMFORTED PATIENT NEEDED. WILL ENDORSE TO LANCE CREWMEMBER NURSE FOR RADHA.
[2016-07-17 20:00] VITALS: BP 101/53
[2016-07-18] MEDS: MORPHINE SULFATE INJ 2 MG/ML DISP.SYRIN IV PRN ×5 (00:24→23:51)
[2016-07-18] MEDS: BLOOD SUGAR DIAGNOSTIC 1 EACH STRIP IN SCH ×4 (06:41→21:52)
--- NOTE | 2016-07-18 06:51 | NUR ---
MS RN NOTES AWAKE & RESPONSIVE. NOT IN ANY DISTRESS. NO SOB NOTED. DENIES ANY PAIN OR DISCOMFORT AT THIS TIME. WITH IV-HL PATENT & INTACT. MONITORED ACCORDINGLY. CALL LIGHT WITHIN REACH. BED IN LOWEST POSITION. SR UP X 2 FOR SAFETY. WILL ENDORSE TO NEXT SHIFT.
--- NOTE | 2016-07-18 07:25 | NUR ---
MS/RN AM NOTES RECEIVED PATIENT IN BED, AWAKE, ALERT, CITIZEN OF [place] SPEAKING, WITHOUT SOB, NO PAIN, ON RA TOLERATING WELL, NO DISTRESS, BREATHING EVEN, UNLABORED. HOB ELEVATED 30 DEGREE, BED IN LOW POSITION, WITH 2 SR UP FOR SAFETY. IV LINE LEFT WRIST INTACT, PATENT, NO REDNESS NOTED. F/C INTACT, WITH TEA COLORED, CLOUDY URINE, DENIES ANY DISCOMFORT, COMFORTABLE IN BED, WITH CALL LIGHT WITHIN EASY REACH. WILL CONTINUE TO MONITOR ACCORDINGLY.
[2016-07-18 07:38] LABS: ALBUMIN 2.4 g/dL (3.4-5.0); BILIRUBIN,TOTAL 1.3 mg/dL (0.2-1.0); CALCIUM, SERUM 8.1 mg/dL (8.5-10.1); CREATININE 2.2 mg/dL (0.6-1.3); POTASSIUM 4.4 mmol/L (3.5-5.1); TOTAL PROTEIN, SERUM 6.1 g/dL (6.4-8.2)
[2016-07-18 08:00] VITALS: BP 98/53
[2016-07-18] MEDS: LACTULOSE 10 G/15 ML UDC (PYXIS) PO SCH ×4 (08:27→20:48)
[2016-07-18] MEDS: NEUTRA PHOS 1 POWD.PACKET PO SCH ×2 (08:28→18:28)
[2016-07-18] MEDS: RIFAMPIN 150 MG CAPSULE PO SCH ×2 (08:28→18:29)
[2016-07-18] MEDS: PANTOPRAZOLE 40 MG VIAL IV SCH ×2 (08:28→20:32)
[2016-07-18] MEDS: SULFAMETH/TRIMETH 800/160 MG 1 UDTAB TABLET PO SCH ×2 (08:28→20:32)
[2016-07-18] MEDS ORDERED: IV Sodium Chloride 3% 500 ML 500 ML IV ONE (11:30)
[2016-07-18] MEDS ORDERED: FUROSEMIDE 20 MG/2 ML VIAL IV SCH (11:40)
[2016-07-18 12:12] LABS: CREATININE, URINE 110.8 MG/DL (30.0-125.0); URINE SODIUM, RANDOM < 5 mmol/l (40-220); URINE TOTAL PROTEIN 54.9 mg/dL (0-11.9)
[2016-07-18] MEDS ORDERED: IV SET PRIMARY PUMP SET 1 EA INFUS.SET MC ONE (12:57)
[2016-07-18 16:00] VITALS: BP 109/54
[2016-07-18] MEDS: QUETIAPINE FUMARATE 25 MG TABLET PO SCH (18:28)
--- NOTE | 2016-07-18 19:20 | NUR ---
MS RN NOTES RECEIVED PT IN BED, AWAKE, ALERT AND VERBALLY RESPONSIVE. ABLE TO VERBALIZE NEEDS. NO DISTRESS, NO SOB NOTED. IV ON RAC INTACT AND PATENT , NO S/S OF INFILTRATION NOTED. IVF INFUSING WELL. NO C/O PAIN OR DISCOMFORT AT THIS TIME. ALL NEEDS ATTENDED AND MET. KEPT COMFORTABLE. CALL LIGHT WITHIN REACH . WILL CONT TO MONITOR.
--- NOTE | 2016-07-18 19:30 | NUR ---
MS/RN CLOSING NOTES PATIENT IS IN BED, AWAKE, ALERT, WITHOUT SOB, ON RA, TOLERATING WELL, DENIES CHEST PAIN. IV LINE RAC INTACT, WITH N/S 3% 500 ML, WITH 25ML/H FOR HYPONATREMIA. PAIN MEDICATION GIVEN FOR ABDOMINAL AND FOR BOTH UPPER EXTREMITY PAIN NEEDED. PATIENT ABLE TO MOVE IN THE BED INDEPENDENTLY, INCONTINENT CARE PROVIDED ACCORDINGLY. KEPT CLEAN, DRY COMFORTABLE NEEDS MET IN TIMELY MANNER WITH CALL LIGHT WITHIN EASY REACH. ENDORSED TO THE MEDICAL ADMINISTRATIVE TECHNICIAN NURSE FOR RADHA.
[2016-07-18 20:00] VITALS: BP_SYST 102; BP_DIAS 62; BP_DIAS 88
[2016-07-18] MEDS: HYDROCODONE/APAP 5/325MG 1 EACH TABLET PO PRN (20:34)
[2016-07-18] MEDS: *INSULIN REGULAR(HUMULIN R)HUM 100 UNIT/ML VIAL SQ PRN (22:02)
[2016-07-19] MEDS: BLOOD SUGAR DIAGNOSTIC 1 EACH STRIP IN SCH ×4 (05:56→21:19)
--- NOTE | 2016-07-19 06:34 | NUR ---
MS RN NOTES PT IN BED, RESTING COMFORTABLY AT THIS TIME. ALERT AND VERBALLY RESPONSIVE. NO DISTRESS, NO SOB NOTED. IV ON RAC INTACT AND PATENT , NO S/S OF INFILTRATION NOTED. IVF INFUSING WELL. NO C/O PAIN OR DISCOMFORT AT THIS TIME. ALL NEEDS ATTENDED AND MET. KEPT COMFORTABLE. CALL LIGHT WITHIN REACH . WILL ENDORSE TO NEXT SHIFT FOR RADHA.
--- NOTE | 2016-07-19 07:05 | NUR ---
MS/RN AM NOTES RECEIVED PATIENT SITTING IN BED, AWAKE, ALERT, WITHOUT SOB, C/O ABDOMINAL PAIN 07/21, ON RA TOLERATING WELL, NO DISTRESS, BREATHING EVEN, UNLABORED. BED IN LOW POSITION, WITH 2 SR UP FOR SAFETY. IV LINE RAC IN TACT PATENT, WITH N/S 3% 25 ML/H, NO REDNESS NOTED, DENIES PAIN. F/C INTACT, WITH TEA COLORED, CLOUDY URINE, DENIES ANY DISCOMFORT, COMFORTABLE , WITH CALL LIGHT WITHIN EASY REACH. WILL CONTINUE TO MONITOR ACCORDINGLY.
[2016-07-19 07:36] LABS: BASOPHILS % (AUTO) 0.1 % (0.0-2.0); EOSINOPHILS # (AUTO) 0.1 /CMM (0.0-0.7); EOSINOPHILS % (AUTO) 1.8 % (0.0-6.0); HEMATOCRIT 29 % (33-45); HEMOGLOBIN 9.8 g/dL (11.5-14.8); LYMPHOCYTES # (AUTO) 0.6 /CMM (0.8-4.8); LYMPHOCYTES % (AUTO) 8.9 % (20.0-44.0); MEAN CORPUSCULAR HEMOGLOBIN 30 PG (26.0-33.0); MEAN CORPUSCULAR HGB CONC 33 g/dl (31.0-36.0); MEAN CORPUSCULAR VOLUME 90 fL (82-100); MONOCYTES # (AUTO) 0.7 /CMM (0.1-1.30); MONOCYTES % (AUTO) 10.4 % (2.0-12.0); NEUTROPHILS # (AUTO) 5.6 /CMM (1.8-8.9); NEUTROPHILS % (AUTO) 78.8 % (43.0-81.0); PLATELET COUNT (AUTO) 146 /CMM (150-450); RED BLOOD CELL COUNT(AUTO) 3.28 MIL/uL (4.0-5.2); WHITE BLOOD COUNT (AUTO) 7.1 K/uL (4.3-11.0)
[2016-07-19 07:52] LABS: ALBUMIN 2.4 g/dL (3.4-5.0); BILIRUBIN,TOTAL 1.7 mg/dL (0.2-1.0); CALCIUM, SERUM 8.2 mg/dL (8.5-10.1); CREATININE 2.5 mg/dL (0.6-1.3); MAGNESIUM 2.1 mg/dL (1.8-2.4); PHOSPHORUS 3.9 mg/dL (2.5-4.9); POTASSIUM 4.1 mmol/L (3.5-5.1); TOTAL PROTEIN, SERUM 5.8 g/dL (6.4-8.2)
[2016-07-19 08:00] VITALS: BP 95/50
[2016-07-19] MEDS: LACTULOSE 10 G/15 ML UDC (PYXIS) PO SCH ×4 (08:13→21:13)
[2016-07-19] MEDS: RIFAMPIN 150 MG CAPSULE PO SCH ×2 (08:14→16:30)
[2016-07-19] MEDS: NEUTRA PHOS 1 POWD.PACKET PO SCH ×2 (08:14→16:30)
[2016-07-19] MEDS: HYDROCODONE/APAP 5/325MG 1 EACH TABLET PO PRN ×2 (08:14→16:28)
[2016-07-19] MEDS: PANTOPRAZOLE 40 MG VIAL IV SCH ×2 (08:14→21:13)
[2016-07-19] MEDS: SULFAMETH/TRIMETH 800/160 MG 1 UDTAB TABLET PO SCH (08:14)
[2016-07-19] MEDS: AZITHROMYCIN 250 MG TABLET PO SCH (08:20)
[2016-07-19] MEDS: ALBUTEROL FS 2.5 MG/3 ML VIAL.NEB NEB SCH ×5 (08:22→23:17)
--- NOTE | 2016-07-19 09:26 | NUR ---
DR. PASCAL VISITED, EXAMINED PATIENT WITH A PLAN TO D/C HOME TOMORROW IF BLOOD SODIUM LEVEL ABOVE 130. PATIENT VERBALIZED UNDERSTANDING, WILL CONTINUE TO MONITOR CLOSELY
[2016-07-19] MEDS ORDERED: SECONDARY IV SET 1 EA INFUS.SET MC ONE (11:04)
[2016-07-19] MEDS ORDERED: IV SET PRIMARY PUMP SET 1 EA INFUS.SET MC ONE ×2 (11:08→16:59)
[2016-07-19] MEDS: ALBUMIN 25% 25 GM in PREMIX 1 EA IV SCH ×3 (11:12→23:26)
[2016-07-19 16:00] VITALS: BP 100/49
[2016-07-19] MEDS: QUETIAPINE FUMARATE 25 MG TABLET PO SCH (16:29)
--- NOTE | 2016-07-19 19:00 | NUR ---
MS RN OPENING NOTES RECEIVED PATIENT IN BED IN STABLE CONDITION, IV SITE INTACT WITH S/S OF INFILTRATION. NO S/S OF DISTRESS NO SOB, NO CHEST PAIN. NO S/S PAIN, SAFE FREE ENVIRONMENT PROVIDED FREE OF CLUTTERS, WILL CONTINUE TO MONITOR, ON LOW BED TO ENSURE SAFETY, CALL LIGHT WITHIN REACH.
--- NOTE | 2016-07-19 19:22 | NUR ---
MS/RN CLOSING NOTES PATIENT IS SITTING IN THE BED, AWAKE, ALERT, NO CHANGES IN MENTAL STATUS NOTED, NO SOB, ON RA TOLERATING WELL. ABDOMEN DISTENDED, NO PAIN, IV LINE INTACT RAC, NO REDNESS, PATENT, WITH NS 3% 25 ML/H. F/C INTACT, PATENT WITH TEA COLORED, CLOUDY URINE, 200 ML/H, KEPT PATIENT ON FLUID RESTRICTION, NEEDS MET IN TIMELY MANNER, PAIN MEDICATION PRN GIVEN FOR ABDOMINAL PAIN. NO S/SX HYPO OR HYPOGLYCEMIA NOTED. BLOOD SUGAR AT 1700 WITH READING OF 142, REFUSED 2 UNIT COVERAGE, RISKS AND CONSEQUENCES EXPLAINED KEPT CLEAN DRY COMFORTABLE WITH CALL LIGHT WITHIN EASY REACH ALL THE TIME. ENDORSED TO THE ANNUAL GIVING OFFICER ACCORDINGLY FOR RADHA
[2016-07-19 20:00] VITALS: BP 88/48
[2016-07-19] MEDS: QUETIAPINE FUMARATE 25 MG TABLET PO PRN (21:18)
[2016-07-19] MEDS: MORPHINE SULFATE INJ 2 MG/ML DISP.SYRIN IV PRN (21:28)
[2016-07-19] MEDS: *INSULIN REGULAR(HUMULIN R)HUM 100 UNIT/ML VIAL SQ PRN (21:32)
[2016-07-20] MEDS: ALBUTEROL FS 2.5 MG/3 ML VIAL.NEB NEB SCH ×3 (02:30→10:41)
--- NOTE | 2016-07-20 02:54 | NUR ---
MS/RN NOTES RECEIVED PATIENT IN BED ASLEEP W/ NO S/S OF SOB OR DISTRESS. MONITORING FOR SAFETY. WILL CONTINUE TO MONITOR FOR ANY PAIN HYPO/HYPERGLYCEMIA. CALL LIGHTS WITHIN REACH.I/O MONITORING.
--- NOTE | 2016-07-20 02:55 | NUR ---
ENDORSE TO ROSALINDA RN CONTINUITY OF CARE FOR THIS PATIENT. PATIENT NO S/S OF DISTRESS. IN STABLE CONDITION
[2016-07-20] MEDS: ALBUMIN 25% 25 GM in PREMIX 1 EA IV SCH (04:02)
--- NOTE | 2016-07-20 06:06 | NUR ---
MS/RN CLOSING NOTES PATIENT IN HOB ELEVATED. ABLE TO SLEEP DURING THE NIGHT.ATTEND TO NEEDS AT ALL TIMES TO MONITOR PATIENT. PROVIDED CARE. CALL LIGHTS WITHIN REACH. PROVIDE FLUIDS. BS CHECK AT 97. IV ON RIGHT AC W/ NO S/S OF INFILTRATION. KEPT SAFETY WITH BED ALARM ON. VERBALIZE NEEDS AND COOPERATIVE TO CARE. WILL ENDORSE TO AM RN FOR RADHA.
--- NOTE | 2016-07-20 07:35 | NUR ---
MS RN OPENING NOTES: RECEIVED PT. IN STABLE CONDITION FROM FRENCH TEACHER NURSE. PT. AWAKE AND LYING IN BED. A/O X2. NO SOB OR SIGNS OF DISTRESS NOTED. IV ON RIGHT AC 22G PATENT AND INTACT. NO REDNESS OR INFILTRATION NOTED. BED IN LOW LOCKED POSITION AND ALARM ON, SIDE RAILS UP X2, CALL LIGHT WITHIN REACH. WILL CONTINUE TO MONITOR.
[2016-07-20 08:00] VITALS: BP 95/55
[2016-07-20 08:19] LABS: BASOPHILS % (AUTO) 0.3 % (0.0-2.0); EOSINOPHILS % (AUTO) 0.8 % (0.0-6.0); HEMATOCRIT 24 % (33-45); HEMOGLOBIN 7.9 g/dL (11.5-14.8); LYMPHOCYTES # (AUTO) 0.4 /CMM (0.8-4.8); LYMPHOCYTES % (AUTO) 8.6 % (20.0-44.0); MEAN CORPUSCULAR HEMOGLOBIN 30 PG (26.0-33.0); MEAN CORPUSCULAR HGB CONC 33 g/dl (31.0-36.0); MEAN CORPUSCULAR VOLUME 89 fL (82-100); MONOCYTES # (AUTO) 0.6 /CMM (0.1-1.30); MONOCYTES % (AUTO) 12.9 % (2.0-12.0); NEUTROPHILS # (AUTO) 3.5 /CMM (1.8-8.9); NEUTROPHILS % (AUTO) 77.4 % (43.0-81.0); PLATELET COUNT (AUTO) 87 /CMM (150-450); RDW COEFFICIENT OF VARIATION 18.6 (11.5-15.0); RED BLOOD CELL COUNT(AUTO) 2.67 MIL/uL (4.0-5.2); WHITE BLOOD COUNT (AUTO) 4.5 K/uL (4.3-11.0)
[2016-07-20 08:34] LABS: CALCIUM, SERUM 8.1 mg/dL (8.5-10.1); CREATININE 2.3 mg/dL (0.6-1.3); POTASSIUM 3.8 mmol/L (3.5-5.1)
[2016-07-20] MEDS: LACTULOSE 10 G/15 ML UDC (PYXIS) PO SCH ×4 (09:00→21:00)
[2016-07-20] MEDS: PANTOPRAZOLE 40 MG VIAL IV SCH ×2 (09:25→21:41)
[2016-07-20] MEDS: NEUTRA PHOS 1 POWD.PACKET PO SCH ×2 (09:26→17:59)
[2016-07-20] MEDS: BLOOD SUGAR DIAGNOSTIC 1 EACH STRIP IN SCH ×4 (09:26→21:40)
[2016-07-20] MEDS: RIFAMPIN 150 MG CAPSULE PO SCH ×2 (09:33→18:00)
[2016-07-20 10:00] VITALS: BP 95/55
[2016-07-20 10:00] LABS: BAND % (MANUAL) 2 % (0.0-5.0); EOSINOPHILS % (MANUAL) 2 % (0-4); LYMPHOCYTES % (MANUAL) 9 % (16-48); MONOCYTES % (MANUAL) 9 % (0-11.0); NEUTROPHILS % (MANUAL) 78 (42-76); PLATELET ESTIMATE DECREASED
[2016-07-20 10:01] LABS: ANISOCYTOSIS 1+
[2016-07-20] MEDS ORDERED: IV Sodium Chloride 3% 500 ML 500 ML IV PRN (10:30)
[2016-07-20] MEDS ORDERED: IV SET PRIMARY PUMP SET 1 EA INFUS.SET MC ONE (10:58)
[2016-07-20] MEDS: QUETIAPINE FUMARATE 25 MG TABLET PO PRN (13:12)
--- NOTE | 2016-07-20 13:31 | NUR ---
MS RN NOTES PT REFUSED BOTH AM AND 1300 LACTULOSE MEDICATION. MEDICATION EDUCATION WAS REINFORCED.
[2016-07-20] MEDS: HYDROCODONE/APAP 5/325MG 1 EACH TABLET PO PRN (15:04)
[2016-07-20 16:00] VITALS: BP 94/59
[2016-07-20] MEDS: QUETIAPINE FUMARATE 25 MG TABLET PO SCH (17:59)
[2016-07-20] MEDS: INSULIN REGULAR, HUMAN 100 UNIT/ML 3 ML VIAL SQ PRN (18:07)
--- NOTE | 2016-07-20 19:05 | NUR ---
MS RN CLOSING NOTES PT. IN STABLE CONDITION SLEEPING IN BED. NO SOB OR SIGNS OF DISTRESS. NO COMPLAINTS OF PAIN AT THIS TIME. BED IN LOW LOCKED POSITION, SIDE RAILS UP X2, CALL LIGHT WITHIN PT REACH. IV REINSERTED 24G R WRIST RUNNING 3%NS. IV PATENT AND INTACT. PT TOLERATING IT WELL. العراق[place] TAKEN OUT. NOT DISCOMFORT NOTED. ALL SAFETY MEASURE INITIATED AND ALL ORDERS CARRIED OUT THROUGHOUT SHIFT. WILL ENDORSE TO HEALTH SERVICES DIRECTOR NURSE FOR RADHA.
--- NOTE | 2016-07-20 19:40 | NUR ---
MS/RN OPENING NOTES PT AWAKE, RESTING IN BED. ON ROOM AIR, NO SOB OR RESPIRATORY DISTRESS NOTED. DENIES PAIN AT THIS TIME. A/OX2. IV TO RIGHT WRIST PATENT AND INTACT RUNNING IVF ORDERED. BED IN LOW/LOCKED POSITION WITH CALL LIGHT IN REACH. BED RAILS UPX2. WILL CONTINUE TO MONITOR
[2016-07-20 20:00] VITALS: BP 111/61
--- NOTE | 2016-07-20 21:52 | NUR ---
MS/RN NOTES BLOOD SUGAR=93. NO INSULIN PER SLIDING SCALE. SNACKS PROVIDED AT BEDSIDE. PT ALSO REFUSING SCHEDULED LACTULOSE 30G PO. EDUCATED PT ON BENEFITS/RISKS OF MEDICATION BUT PT STILL REFUSING BECAUSE SHE DOES NOT LIKE IT.
[2016-07-20] MEDS: *INSULIN REGULAR(HUMULIN R)HUM 100 UNIT/ML VIAL SQ PRN (21:58)
[2016-07-21] MEDS: BLOOD SUGAR DIAGNOSTIC 1 EACH STRIP IN SCH ×2 (06:39→12:00)
--- NOTE | 2016-07-21 06:42 | NUR ---
MS/RN NOTES BLOOD SUGAR=97. NO INSULIN COVERAGE PER SLIDING SCALE.
--- NOTE | 2016-07-21 07:39 | NUR ---
MS/RN CLOSING NOTES PT AWAKE, A/OX2-3, ON ROOM AIR, NO SOB OR DISTRESS NOTED. DENIES PAIN AT THIS TIME. WALKED TO THE BATHROOM X2. IV TO RIGHT WRIST RUNNING IVF ORDERED. CAN BECOME EASILY AGITATED. ALL NEEDS MET AND ATTENDED TO THROUGHOUT SHIFT. BED IN LOW/LOCKED POSITION WITH CALL LIGHT IN REACH. MADE PT COMFORTABLE THROUGHOUT SHIFT. BED RAILS UPX2. ENDORSED TO AM SHIFT RADHA.
[2016-07-21 08:00] VITALS: BP 89/51
--- NOTE | 2016-07-21 08:00 | NUR ---
MS RN NOTE PT. AWAKE, ALERT AND ORIENTED X2. PT. REFUSED TO DRAW BLOOD FOR AM LAB. AUTOMOTIVE COLLISION ESTIMATOR WILL TRY AGAIN LATER. ALSO PT REFUSED TO GET IVF. DENIED PAIN AND SOB AT THIS TIME. CALL LIGHT WITHIN REACH. SIDE RAILS UP. MONITOR CLOSELY.
[2016-07-21] MEDS: LACTULOSE 10 G/15 ML UDC (PYXIS) PO SCH ×2 (08:59→13:00)
[2016-07-21] MEDS: NEUTRA PHOS 1 POWD.PACKET PO SCH (08:59)
[2016-07-21] MEDS: RIFAMPIN 150 MG CAPSULE PO SCH (08:59)
[2016-07-21] MEDS: PANTOPRAZOLE 40 MG VIAL IV SCH (08:59)
--- NOTE | 2016-07-21 09:00 | NUR ---
PT. REFUSED TO TAKE MEDICATIONS (LACTULOSE, RIFADIN, NEUTRA PHOS, PROTONIX).
[2016-07-21 10:15] LABS: BASOPHILS % (AUTO) 0.2 % (0.0-2.0); EOSINOPHILS % (AUTO) 0.4 % (0.0-6.0); HEMATOCRIT 27 % (33-45); HEMOGLOBIN 8.9 g/dL (11.5-14.8); LYMPHOCYTES # (AUTO) 0.4 /CMM (0.8-4.8); LYMPHOCYTES % (AUTO) 6.9 % (20.0-44.0); MEAN CORPUSCULAR HEMOGLOBIN 30 PG (26.0-33.0); MEAN CORPUSCULAR HGB CONC 34 g/dl (31.0-36.0); MEAN CORPUSCULAR VOLUME 88 fL (82-100); MONOCYTES # (AUTO) 0.6 /CMM (0.1-1.30); MONOCYTES % (AUTO) 11.5 % (2.0-12.0); NEUTROPHILS # (AUTO) 4.6 /CMM (1.8-8.9); PLATELET COUNT (AUTO) 118 /CMM (150-450); RED BLOOD CELL COUNT(AUTO) 3.01 MIL/uL (4.0-5.2); WHITE BLOOD COUNT (AUTO) 5.7 K/uL (4.3-11.0)
[2016-07-21 10:36] LABS: CREATININE 2.2 mg/dL (0.6-1.3); PHOSPHORUS 2.7 mg/dL (2.5-4.9); POTASSIUM 4.1 mmol/L (3.5-5.1)
--- NOTE | 2016-07-21 11:15 | NUR ---
WOUND CARE CONSULT: PATIENT SEEN AND PATIENT REFUSED SKIN ASSESSMENT, SHOUTING AND ANGRY, SEATED AT THE EDGE OF THE BED, AMBULATORY ACCORDING TO NURSING STAFF. PATIENT FOR DISCHARGE TODAY. Addendum: 07/21/16 at 1116 by MAKI HEARN WNDNU Amended: Links added.
[2016-07-21] MEDS ORDERED: QUET25TA PO ×2 (11:28)
--- NOTE | 2016-07-21 11:39 | NUR ---
SHIKHA received a call from pillowcase sewer Yesi stating that pt. is ready to be discharged back to her board and care. Yesi left a message for the social work job titles Kelly Villa and is awaiting a call back. SHIKHA also left a message for Kelly Villa informing her that pt. is ready to be discharged back to her board and care and to call back. SHIKHA called the [facility] and left a voicemail message requesting a callback. Addendum: 07/21/16 at 1159 by MANJIT TRIVEDI SHIKHA received a callback from Kelly Villa who informed SHIKHA to call Suzi at the [facility] regarding discharge. SHIKHA called back [employer]case sewer Yesi and gave her the updated phone number for the [facility].
--- NOTE | 2016-07-21 12:00 | NUR ---
BLOOD SUGAR WAS 150. PT REFUSED TO TAKE INSULIN.
--- NOTE | 2016-07-21 13:00 | NUR ---
PT. WILL BE DISCHARGE TO THE BOARD AND CARE. TRIED TO TAKE PICTURE FOR HER SKIN. BUT PT REFUSED STRONGLY.
--- NOTE | 2016-07-21 13:20 | NUR ---
TRANSFERRED TO BOARD AND CARE BY AMBULANCE.
== END 2016-07-21 13:27 | disposition home or self-care (01) | DRG 279 ==
LOC: MED 21:36
PROVIDERS: ADMIT Family Medicine; ATTEND Family Medicine
PROC: 0W9G3ZZ Drainage of Peritoneal Cavity, Percutaneous Approach (ICD-10-PCS; principal; 2016-07-17)
DX: K72.00 Acute and subacute hepatic failure without coma (principal); K76.7 Hepatorenal syndrome; D61.818 Other pancytopenia; R18.8 Other ascites; E11.22 Type 2 diabetes mellitus with diabetic chronic kidney disease; E87.1 Hypo-osmolality and hyponatremia; E87.70 Fluid overload, unspecified; B19.20 Unspecified viral hepatitis C without hepatic coma; K74.60 Unspecified cirrhosis of liver; Z59.0 Homelessness; N18.9 Chronic kidney disease, unspecified; D64.9 Anemia, unspecified
CPT/HCPCS: 36415; 76942-TC; 80048-TC; 80053-TC; 81000-TC; 82140-TC; 82550-TC; 82553-TC; 82570-TC; 82728-TC; 82962-TC; 83540-TC; 83735-TC; 83935-TC; 83970; 84100-TC; 84155; 84155-TC; 84165; 84300-TC; 85025-TC; 85610-TC; 85730-TC; 87070-TC; 87081-TC; 87086-TC; 87116; 87206; 94799-TC; 97001-TC; A4216; C9113; J1815; J2270; J3475; J3490; J7050; P9047; Z7610